=== PATIENT | male | born 1950 | race Caucasian/White ===

== ENCOUNTER 2023-05-06 13:31 | Emergency (ER) | payer MEDICARE, SELFPAY ==
[2023-05-06 13:32] VITALS: BP 107/77
--- NOTE | 2023-05-06 14:43 | ED.GENMED ---
History of Present Illness
<Taylor Summers PA-C - Last Filed: 05/06/23 23:14>
General
Chief Complaint: Flank Pain
Source: patient
Exam Limitations: none
Time Seen by Provider: 05/06/23 14:21
Nursing documentation reviewed up to this point in time: agreed with
Travel History
Have you had any contact with someone who has COVID-19?: No
Do you have any symptoms of coronavirus? Fever > 100 degrees, chills, cough, shortness of breath, sore throat, loss of taste or smell, muscle aches, or headache?: No
History of Present Illness
History of Present Illness:
Patient is a 73-year-old male with history as documented presenting for evaluation of right flank pain. Symptoms started 2 days ago and have been waxing waning intensity since. Pain is located over the right flank with some radiation around to the
right lower abdomen. He states his pain is exactly like his previous kidney stones. Pain is associate with some mild nausea but no vomiting. He denies any fever, chills, diarrhea, constipation, urinary symptoms. He has not noticed any hematuria.
He has inflammatory medications from last kidney stone which she has been taking. He has been taking Flomax once daily. He has been taking oxycodone 5 mg as needed for severe pain. He has been taking Zofran as needed for nausea
Phy Exam
<Taylor Summers PA-C - Last Filed: 05/06/23 23:14>
Physical Exam
Physical Exam:
General: Well appearing and non-toxic
Vitals: Vital signs stable, afebrile
HEENT: Atraumatic, normocephalic; pupils equal round reactive light bilaterally, protecting airway
Neck: appears supple, no JVD
CV: Regular rate and rhythm, heart sounds normal, no evidence of cyanosis
Resp: No evidence of respiratory stress, lungs clear, no accessory muscle use
Abd: Soft, nontender in all 4 quadrants without rebound or guarding, non-distended; no CVA tenderness
Extremities: No deformities, no evidence of cyanosis or edema
Neuro: alert and oriented x 3, grossly intact
Psych: Normal affect
Skin: Intact, no rashes
Course
<Taylor Summers PA-C - Last Filed: 05/06/23 23:14>
Orders/Labs/Results
Orders:
Orders
05/06/23 14:47
CT Abd/pel Without Iv Or Oral Urgent
Comment:
Reason For Exam: R flank pain, hx kidney stones
05/06/23 14:53
0.9% Sodium Chloride 1000 ml [Nss] 1,000 ml IV BOLUS
05/06/23 14:54
0.9% Sodium Chloride 500 ml [Nss] 500 ml IV BOLUS
05/06/23 15:10
Complete Blood Count/With Diff Urgent
Comprehensive Metabolic Panel Urgent
05/06/23 15:39
Urinalysis Reflex To Culture Urgent
Date Specimen was Collected: 05/06/23
Time Specimen was Collected: 15:34
Abnormal Lab Results
05/06/23
15:10
RBC 4.50 L 10^6/uL
(4.70-6.10)
Hct 38.6 L %
(39.0-52.0)
MPV 11.0 H fL
(7.4-10.4)
Absolute Monos (auto) 0.9 H 10^3/uL
(0.1-0.6)
Lymphocytes % 15.5 L %
(20.5-51.1)
Monocytes % 10.4 H %
(1.7-9.3)
Sodium 134 L mmol/L
(135-145)
BUN 34 H mg/dl
(9-20)
Creatinine 1.6 H mg/dL
(0.7-1.3)
Glucose 109 H mg/dl
(70-99)
05/06/23 15:10
05/06/23 15:10
Vital Signs
Initial and Last Documented VS:
Initial Vital Signs
Temp Pulse Resp BP Pulse Ox
97.8 F 69 16 107/77 100
05/06/23 13:32 05/06/23 13:32 05/06/23 13:32 05/06/23 13:32 05/06/23 13:32
Last Documented Vital Signs
Temp Pulse Resp BP Pulse Ox
97.8 F 69 16 107/77 100
05/06/23 13:32 05/06/23 13:32 05/06/23 13:32 05/06/23 13:32 05/06/23 13:32
<Chito Keene MD - Last Filed: 05/06/23 15:54>
Orders/Labs/Results
Orders:
Orders
05/06/23 14:47
CT Abd/pel Without Iv Or Oral Urgent
Comment:
Reason For Exam: R flank pain, hx kidney stones
05/06/23 14:53
0.9% Sodium Chloride 1000 ml [Nss] 1,000 ml IV BOLUS
05/06/23 14:54
0.9% Sodium Chloride 500 ml [Nss] 500 ml IV BOLUS
05/06/23 15:10
Complete Blood Count/With Diff Urgent
Comprehensive Metabolic Panel Urgent
05/06/23 15:39
Urinalysis Reflex To Culture Urgent
Date Specimen was Collected: 05/06/23
Time Specimen was Collected: 15:34
Abnormal Lab Results
05/06/23
15:10
RBC 4.50 L 10^6/uL
(4.70-6.10)
Hct 38.6 L %
(39.0-52.0)
MPV 11.0 H fL
(7.4-10.4)
Absolute Monos (auto) 0.9 H 10^3/uL
(0.1-0.6)
Lymphocytes % 15.5 L %
(20.5-51.1)
Monocytes % 10.4 H %
(1.7-9.3)
Sodium 134 L mmol/L
(135-145)
BUN 34 H mg/dl
(9-20)
Creatinine 1.6 H mg/dL
(0.7-1.3)
Glucose 109 H mg/dl
(70-99)
05/06/23 15:10
05/06/23 15:10
Vital Signs
Initial and Last Documented VS:
Initial Vital Signs
Temp Pulse Resp BP Pulse Ox
97.8 F 69 16 107/77 100
05/06/23 13:32 05/06/23 13:32 05/06/23 13:32 05/06/23 13:32 05/06/23 13:32
Last Documented Vital Signs
Temp Pulse Resp BP Pulse Ox
97.8 F 69 16 107/77 100
05/06/23 13:32 05/06/23 13:32 05/06/23 13:32 05/06/23 13:32 05/06/23 13:32
<Taylor Summers PA-C - Last Filed: 05/06/23 23:14>
MDM/Problems Addressed
Differential Diagnosis Includes:
kidney stone, UTI, pyelonephritis, muscular strain, appendicitis
MDM/Problems Addressed:
Patient is a 73 year old male with history as documented presenting for evaluation of right flank pain worsening over the past 2 days. No fever, chills, urinary symptoms. Pain waxes and wanes in severity - very similar to prior episodes of kidney
stones. Vital signs stable. Physical exam as documented above. Will check basic labs, UA, CT abdomen/pelvis. Will give fluids. To consider toradol pending metabolic panel results.
CBC without any clinically significant abnormalities. CMP shows creatinine of 1.6 from 0.9 baseline. Will avoid toradol for now given creatinine elevation- patient in no pain correctly. UA shows no signs of infection. CT shows 7mm obstructing stone
at right UVJ. Given elevation if kidney function - discussed case with urology. Urology recommends trial of stone passage for 7-10 days.
Discussed with patient who is agreeable. Will discharge patient with close return precautions, flomax, oxycodone/tylenol as needed for pain, hydration. Patient made aware to have kidney function rechecked by primary care in a few days. Patient will
follow-up with urology.
Chronic conditions affecting care:
Prior kidney stones
Acute Exacerbation and/or Progression of Chronic Illness:
Ureterolithiasis
<Taylor Summers PA-C - Last Filed: 05/06/23 23:14>
*Radiology
Radiology exam reviewed: preliminary read by ED provider and radiology read reviewed
*Pulse Oximetry
Patient hypoxic: no
*Criminal Attorney Interpretation
Rate: Criminal Attorney- N/A
*Critical Care Note
Total Time (30-74mins, 75-104mins- exclusive of procedures): Not Applicable
Data Reviewed
Review of Other/Old Records Reveals: Labs and Records
Source: patient, records and spouse
<Taylor Summers PA-C - Last Filed: 05/06/23 23:14>
Patient Management
Discussion with other providers: Rn Im[facility] (urology)
ED Attending Note
<Taylor Summers PA-C - Last Filed: 05/06/23 23:14>
-
Portions of this chart may have been created with voice recognition software.� Occasional wrong word or��sound alike� substitutions may have occurred due to the inherent limitations of voice recognition software.
<Chito Keene MD - Last Filed: 05/06/23 15:54>
ED Attending Note
Patient seen and examined by attending physician: Yes
ED Attending Note:
HPI: 73-year-old male with history as documented presents to the emergency department for flank pain. Patient reports onset of symptoms a few days ago they have been waxing waning since that time. Identical to prior kidney stones. He says pain is
in the right flank radiates towards the right lateral/lower abdomen. No clear triggering or relieving factors noted. Mild associated nausea no vomiting. No dysuria or hematuria, change in frequency. No fever.
ROS: Positive for flank pain, abdominal pain, nausea; negative for vomiting, constipation, diarrhea, fever, dysuria, hematuria, change in urinary frequency
Physical exam:
General: Awake, alert, oriented x3; no acute distress
Head: Normocephalic, atraumatic
Eyes: Conjunctiva normal, sclera anicteric
Throat: Airway intact, handling secretions
Neck: Trachea midline, supple without meningismus
Lungs: Clear to auscultation bilaterally, no wheezing, rales, rhonchi
Heart: Regular rate and rhythm, no murmurs, gallops, or rubs
Abd: Soft, non distended, nontender, no mass
Back: No CVA tenderness
Neuro: No gross deficits
Extremities: Warm and well-perfused
Differential diagnosis: UTI, nephrolithiasis, appendicitis
Medical decision makin-year-old male presents with right flank pain for the past few days identical to prior kidney stones. Vital signs normal. Exam as above. Check labs including CBC and CMP; check urinalysis. Will check CT abdomen pelvis.
Provide some fluids and pain control. Monitor closely reassess after the above.
Labs reviewed CBC unremarkable, CMP shows creatinine of 1.6 from a baseline of 0.9. Urinalysis pending. CT shows 7 mm obstructive stone at the right UVJ. PA to discuss with urology given abnormal renal function.
Chronic conditions affecting care: N/A
Acute exacerbation or progression of chronic illness: Acute kidney injury
History source: Patient, spouse, medical records
Data reviewed: Records, lab work
Medications/testing considered: N/A
Social determinants of health: N/A
Discussion with other providers: NAVDEEP discussed with urology
Discharge Plan
Departure
Patient Disposition: Home (Routine Discharge)
Date of Disposition: 05/06/23
Time of Disposition: 16:12
Patient with high blood pressure during this ER visit?: No
Condition: Good
Covid-19: Not Applicable
Discharge Problem:
Ureterolithiasis
Instructions: Kidney Stones (DC)
Prescriptions:
New
tamsulosin [Flomax] 0.4 mg capsule
0.4 mg PO DAILY Qty: 10 0RF
oxycodone 5 mg tablet
5 mg PO Q8H PRN (Reason: Pain) Qty: 10 0RF
ondansetron 4 mg tablet,disintegrating
4 mg PO Q8H PRN (Reason: nausea and vomiting) Qty: 8 0RF
No Action
atorvastatin 20 MG tablet
20 mg PO HS
omeprazole 20 MG capsule,delayed release(DR/EC)
20 mg PO HS
folic acid 1 MG tablet
3 mg PO HS
One Daily For Men 1 EACH tablet
1 ea PO HS
amoxicillin 500 MG capsule
2,000 mg PO PRN PRN (Reason: dental procedure)
vardenafil 20 MG tablet
10 mg PO DAILYPRN PRN (Reason: erectile dysfunction)
Calcium Mag Zinc/Vit D3
1 tab PO HS
methotrexate sodium 2.5 MG tablet
10 mg PO SA Qty: 0 0RF
fluticasone propionate 1 SPRAY spray,suspension
1 spray intranasal DAILY PRN (Reason: congestion)
Orencia:
1 dose IV Q1M
Patient Comments:
valacyclovir 1,000 MG tablet
2,000 mg PO BID PRN (Reason: cold sores)
losartan 25 MG tablet
25 mg PO HS
glucosamine-chondroitin [Osteo Bi-Flex] 250-200 mg Tablet
1 tab PO HS
carvedilol 3.125 mg Tablet
3.125 mg PO BID Qty: 180 5RF
oxycodone-acetaminophen [Percocet] 5-325 mg tablet
1 tab PO Q6HPRN PRN (Reason: pain) Qty: 8 0RF
tamsulosin [Flomax] 0.4 mg capsule
0.4 mg PO HS Qty: 7 0RF
Referrals:
Prosper Graham MD [Active] - Follow up in 1 week
Derian Garcia MD [Family Provider] -
Activity Restrictions/Additional Instructions:
-Return to the emergency department with any high fevers, intractable pain, intractable vomiting, severe abdominal pain, worsening in current symptoms, or any other concerns.
-Your prescriptions have been sent to your pharmacy. Take oxycodone as needed for severe pain. Oxycodone can cause drowsiness - do not take prior to driving. You can take tylenol for mild pain.
-It is important to stay very well hydrated
-As discussed - you should have your lab work re-checked in 2-3 days with your primary care. You should contact your surgical scrub technician and make them aware about your elevated renal function prior to receiving your infusion later this week.
-Follow-up with urology for further evaluation/management
Interventions
Interventions:
*Risk Screen - Suicide Last Done: 05/06/23 13:32
*Neglect/Abuse Screening Last Done: 05/06/23 13:32
*ED COVID-19 Vaccine History Last Done: 05/06/23 13:32
*Nursing Disposition Last Done: 05/06/23 16:34
IM-Uasvno-Imkuortdft Assessment Last Done: 05/06/23 15:10
ED-Male Genitourinary Assessment Last Done: 05/06/23 15:10
Discharge Date and Time
Discharge Date/Time: 05/06/23 16:34
[2023-05-06] MEDS: NSS 500 IV (15:09)
[2023-05-06 15:42] LABS: % Basophils 0.3 % (0-2); % Eosinophils 1.8 % (0-6); % Immature Granulocytes 0.3 % (0-0.5); % Lymphocytes 15.5 % (20.5-51.1); % Monocytes 10.4 % (1.7-9.3); % Neutrophils 71.7 % (42.2-75.2); ALT (SGPT) 20 U/L (0-50); AST (SGOT) 33 U/L (17-59); Absolute Eosinophils 0.2 10^3/uL (0-0.7); Absolute Lymphocytes 1.4 10^3/uL (1.2-3.4); Absolute Monocytes 0.9 10^3/uL (0.1-0.6); Absolute Neutrophils 6.3 10^3/uL (1.4-6.5); Albumin 3.9 g/dl (3.5-5.0); Alkaline Phosphatase 110 U/L (38-126); Blood Urea Nitrogen 34 mg/dl (9-20); Calcium 9.1 mg/dl (8.4-10.2); Carbon Dioxide 27 mmol/L (22-30); Chloride 103 mmol/L (98-107); Glucose 109 mg/dl (70-99); Hematocrit 38.6 % (39.0-52.0); Hemoglobin 13.3 g/dL (13.0-18.0); Mean Corp Hgb Conc. 34.5 g/dL (33.0-37.0); Mean Corpuscular Hgb 29.6 pg (27.0-31.0); Mean Corpuscular Volume 85.8 fL (80.0-94.0); Nucleated Red Blood Cells % 0 % (-); Platelet Count 180 10^3/uL (130-400); Potassium 4.8 mmol/L (3.5-5.1); Red Cell Dist. Width 13.7 % (11.5-14.5); Sodium 134 mmol/L (135-145); Total Bilirubin 0.8 mg/dl (0.2-1.3); Total Protein 6.7 g/dl (6.3-8.2); White Blood Cell Count 8.9 10^3/uL (4.8-10.8); eGFR 45.21
[2023-05-06 15:55] LABS: Urine Albumin Negative (Neg - Trace); Urine Bilirubin Negative (Negative); Urine Character Clear (Clear); Urine Color Yellow; Urine Glucose Negative (Negative); Urine Ketone Negative (Negative); Urine Leukocyte Negative (Negative); Urine Nitrite Negative (Negative); Urine Occult Blood Negative (Negative); Urine Urobilinogen Negative (Neg - 1+)
== END 2023-05-06 16:34 | disposition home or self-care (01) ==
LOC: EMR 13:31
PROVIDERS: Physician Assistant; EMERGENCY PHYSICIAN Emergency Medicine; FAMILY PHYSICIAN Family Medicine
DX: N13.2 Hydronephrosis with renal and ureteral calculous obstruction (principal)
CPT/HCPCS: 99284; 96360; 74176; 80053; 81003; 85025

== ENCOUNTER → 2024-03-31 12:38 | Outpatient (REF) | payer MEDICARE, SELFPAY | LOC: RCS 12:38 | PROVIDERS: ATTENDING PHYSICIAN Internal Medicine Cardiovascular Disease; FAMILY PHYSICIAN Family Medicine | DX: I47.29 Other ventricular tachycardia (principal) | CPT/HCPCS: 93306 ==

== ENCOUNTER → 2024-10-04 13:44 | Outpatient (REF) | payer MEDICARE, SELFPAY | LOC: RAD 13:44 | PROVIDERS: ATTENDING PHYSICIAN Internal Medicine Cardiovascular Disease; FAMILY PHYSICIAN Family Medicine | DX: I42.8 Other cardiomyopathies (principal); M06.9 Rheumatoid arthritis, unspecified | CPT/HCPCS: 71046 ==

== ENCOUNTER 2025-01-31 21:17 | Inpatient (IN) | payer MEDICARE, SELFPAY ==
[2025-01-31] VITALS (14 sets, daily range): BP systolic 85–127; BP diastolic 68–91; BMI 24.0
--- NOTE | 2025-01-31 16:19 | ED.GENMED ---
History of Present Illness
General
Chief Complaint: Heart Rate Problem
Source: patient
Exam Limitations: none
Time Seen by Provider: 01/31/25 15:58
Nursing documentation reviewed up to this point in time: agreed with
History of Present Illness
History of Present Illness:
Patient presents to ED from outpatient infusion center, where he was supposed to receive monthly injections for rheumatoid arthritis, secondary to increased heart rate. Patient does report sensation of 'racing' feeling, which he attributed to
having had a busy schedule this morning with different appointments. Denies chest pain. Denies dizziness. Denies nausea or vomiting. Denies diaphoresis. Patient has had defibrillator placed 4 years ago, secondary to loop recorder detecting
heart rate exceeding 190 bpm. Patient has not any symptoms since then. Denies recent illness. Denies recent change in medications or diet.
Review of Systems
Review of Systems
Allergies reviewed?: Yes
All Other Systems: ROS reviewed and negative except as documented in HPI and ROS
Constitutional: Reports no symptoms; Denies fever or chills
EENT: Reports no symptoms
Respiratory: Reports no symptoms; Denies trouble breathing
Cardiac: Reports palpitations; Denies chest pain, diaphoresis or syncope
ABD/GI: Reports no symptoms; Denies nausea or vomiting
Musculoskeletal: Reports no symptoms
Skin: Reports no symptoms
Neurological: Reports no symptoms
Phy Exam
Physical Exam
Physical Exam:
Physical Exam
General: no apparent distress, not acutely ill. afebrile
Head: nc/at. eomi
Neck: supple. normal range of motion
Heart: tachycardic. no murmur
Lungs: no acute respiratory distress. clear bilaterally
Abdomen: normal bowel sounds. not tender.
Neuro: alert and oriented x 3. no focal neurological deficits
Skin: no rash
Psychiatric: well kept. interactive and cooperative
Extremities: no edema. no calf tenderness.
Course
Orders/Labs/Results
Orders:
Orders
01/31/25 15:51
Electrocardiogram (*1) Urgent
Reason for Study: Other
Other Reason for Exam: abnormal EKG from urgent care
EKG- Treatment ONCE
01/31/25 16:17
Comprehensive Metabolic Panel Urgent
Magnesium Urgent
01/31/25 16:18
Complete Blood Count/No Diff Urgent
TSH Urgent
01/31/25 16:21
0.9% Sodium Chloride 500 ml [Nss] 500 ml IV BOLUS
01/31/25 17:54
Metoprolol [Lopressor] 5 mg IV NOW STA
01/31/25 18:17
D-Dimer Urgent
Troponin I Urgent
01/31/25 19:23
CT Chest PE Study Urgent
Comment:
Reason For Exam: tachycardia with elevated d-dimer
01/31/25 20:06
Diltiazem HCl [Cardizem] 10 mg IV NOW STA
01/31/25 20:44
EKG PRN [ECG as needed] As Directed
ECG as needed for:: Rhythm Change
01/31/25 20:57
Admit/Transfer Patient As Directed
Co-Sign Provider:
Level of Care: Inpatient admission
Assign to:: IVU
Physician / Group: bruce lyons
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
Expected length of stay greater than two midnights?: Yes
ELOS- Estimated Length of Stay in days: 3
I certify the patient meets the requirements for IP care: Yes
Code Status As Directed
Resuscitation Status: Full Code
01/31/25 21:00
PRN Pain Medication Management As Directed
May give lesser potent ordered pain med per pt: Yes
preference::
Protocol:: Medication orders for pain may be administered in a
manner that supports deferring to patient preference
when the pt is:
- Requesting an ordered lesser potent pain medication.
Least to most potent pain medications are defined
as: acetaminophen < NSAID < tramadol < opioids
(morphine, oxycodone, hydromorphone).
- Requesting a lesser dose of the same medication IF
ORDERED.
- Requesting a less intrusive route of administration
if both routes are prescribed by the provider (PO <
IV).
01/31/25 21:01
CARDIOLOGY CONSULT Routine
Consulting Provider: Adolfo Leger
Was physician already notified: Yes
Reason for consult: parox afib, AF/AT on defib
01/31/25 22:57
Troponin I Urgent
02/01/25 02:09
Activity As Directed
Activity Level: As Tolerated
Intake/ Output As Directed
Frequency: Per unit guidelines
Vital Signs As Directed
Frequency: Per unit guidelines
Weight As Directed
Frequency: Daily
Pt Eval And Treat Routine
Activity Level: As Tolerated
DX Deep Vein Thrombosis Video Routine
02/01/25 03:11
Complete Blood Count/With Diff IN AM
Comprehensive Metabolic Panel IN AM
Magnesium IN AM
Troponin I Urgent
02/01/25 08:00
Atorvastatin [Lipitor] 20 mg PO DAILY
Calcium Carbonate/Vitamin D3 [Oscal 500 + D] 500 mg PO DAILY
Carvedilol [Coreg] 6.25 mg PO BID
FOLic ACID [Folvite] 1 mg PO DAILY
Heparin 5,000 units SC Q12
Multivitamin [Theragran] 1 tablet PO DAILY
Pantoprazole [Protonix] 40 mg PO DAILY
02/01/25 Dinner
Cholesterol Lowering
At Your Request: Full Participation
Cholesterol Lowering: Sodium, 2 Gram
02/02/25 06:00
Complete Blood Count/With Diff IN AM
Comprehensive Metabolic Panel IN AM
Abnormal Lab Results
01/31/25 01/31/25 01/31/25
16:17 16:18 18:17
MPV 11.0 H fL
(7.4-10.4)
D-Dimer 1.00 H ug/mlFEU
(0.00-0.50)
Sodium 134 L mmol/L
(135-145)
BUN 27 H mg/dl
(9-20)
Troponin I 0.050 H* ng/ml
01/31/25 16:18
01/31/25 16:17
Vital Signs
Initial and Last Documented VS:
Initial Vital Signs
Temp Pulse Resp BP Pulse Ox
98.4 F 134 18 127/91 100
01/31/25 15:48 01/31/25 15:48 01/31/25 15:48 01/31/25 15:48 01/31/25 15:48
Last Documented Vital Signs
Temp Pulse Resp BP Pulse Ox
97.5 F 91 18 76/54 99
02/01/25 06:57 02/01/25 05:15 02/01/25 06:57 02/01/25 05:13 02/01/25 06:57
MDM/Problems Addressed
MDM/Problems Addressed:
Patient remains tachycardic despite initial IV fluid administration, with continual sensation of 'racing feeling'. In addition, patient remains hypotensive.
Discussed with on-call cardiology, Dr. Leger, who recommends controlling heart rate with beta-xi along with additional IV fluids, as needed.
Initial troponin noted with elevated D-dimer. PE study ordered.
CTA chest: No PE noted.
In light of patient's persistent tachycardia with mild hypotension, patient will be admitted for further evaluation and treatment.
*Pulse Oximetry
SaO2: 100
Oxygen Mode of Delivery: Room air
Patient hypoxic: no
*EKG
Interpreted by ED Provider?: Yes
EKG Intrepretation Date: 01/31/25
Heart Rate: 133
Rate: tachycardiac
Rhythm: sinus
[place]: normal axis
Interval: normal interval
*Critical Care Note
Total Time (30-74mins, 75-104mins- exclusive of procedures): 40 min
ED Attending Note
-
Portions of this chart may have been created with voice recognition software.� Occasional wrong word or��sound alike� substitutions may have occurred due to the inherent limitations of voice recognition software.
Discharge Plan
Departure
Patient Disposition: Admit
Date of Disposition: 01/31/25
Time of Disposition: 20:10
Admit to: Telemetry
Presentation/result/management discussed w/ accepting MD/DO: Hospitalist
Discharge Problem:
Tachycardia
Interventions
Interventions:
*Risk Screen - Suicide Last Done: 01/31/25 15:48
*General Assessment Last Done: 01/31/25 15:48
*Neglect/Abuse Screening Last Done: 01/31/25 15:48
*ED COVID-19 Vaccine History Last Done: 01/31/25 18:58
*ED Influenza Vaccine History Last Done: 01/31/25 18:[address]
[facility] Fall Risk Assessment Tool Last Done: 01/31/25 18:58
*Nursing Disposition Last Done: 02/01/25 01:40
ED- Cardiac Assessment Last Done: 01/31/25 18:58
ED- Pulmonary Assessment Last Done: 01/31/25 18:58
Discharge Date and Time
Discharge Date/Time: 02/01/25 01:40
[2025-01-31 16:29] LABS: Hematocrit 44.3 % (39.0-52.0); Hemoglobin 15.0 g/dL (13.0-18.0); Mean Corp Hgb Conc. 33.9 g/dL (33.0-37.0); Mean Corpuscular Volume 87.2 fL (80.0-94.0); Platelet Count 228 10^3/uL (130-400); Red Cell Dist. Width 14.0 % (11.5-14.5)
[2025-01-31] MEDS: NSS 500 IV (16:30)
[2025-01-31 16:48] LABS: ALT (SGPT) 22 U/L (0-50); AST (SGOT) 29 U/L (17-59); Albumin 4.2 g/dl (3.5-5.0); Alkaline Phosphatase 114 U/L (38-126); Blood Urea Nitrogen 27 mg/dl (9-20); Calcium 9.3 mg/dl (8.4-10.2); Carbon Dioxide 28 mmol/L (22-30); Chloride 103 mmol/L (98-107); Estimated Creatinine Clearance 57 ml/min; Glucose 93 mg/dl (70-99); Magnesium 2.0 mg/dl (1.6-2.3); Potassium 4.2 mmol/L (3.5-5.1); Sodium 134 mmol/L (135-145); Total Protein 7.3 g/dl (6.3-8.2); eGFR > 60.00
[2025-01-31 17:10] LABS: TSH 1.79 uIU/ml (0.47-4.68)
[2025-01-31] MEDS: LOPRESSOR 5 MG IV (18:06)
[2025-01-31 18:37] LABS: D-Dimer 1.00 ug/mlFEU (0.00-0.50)
[2025-01-31 19:23] LABS: Troponin I 0.050 ng/ml
--- NOTE | 2025-01-31 20:22 | HPS.HSE ---
Addendum entered and electronically signed by Macarena Juarez MD 01/31/25 21:25:
This is an addendum to H&P written by Na Price on 01/31/2025. �Patient seen and examined independently with DIVERSITY SPECIALIST.
75-year-old male past medical history of ventricular tachycardia with ICD, chronic HFrEF, nonischemic cardiomyopathy, hypertension, hyperlipidemia, GERD, rheumatoid arthritis, depression, presenting from outpatient infusion center where he receives
injections for rheumatoid arthritis for increased heart rate. �Had shortness of breath yesterday with no other symptoms. �No chest pain.
Vital signs show blood pressure lowest 88/69. �Heart rate up to 135. �EKG shows sinus tachycardia up to 133.
Labs show troponin of 0.05. �TSH 1.79.
Interrogation report from ICD shows atrial tachycardia/atrial fibrillation.
Patient with tachycardia likely atrial flutter. �Nonischemic myocardial injury from tachycardia. �IV fluids given, Lopressor, Cardizem 10 mg given with improvement heart rate to 70s. �Increase Coreg to 6.25 mg twice daily. �Cardiology consulted.
Original Note:
Family Physician
-
Family Physician: Derian Garcia
Chief Complaint
-
Persistent tachycardia
History of Present Illness
75-year-old male from home who states he went to infusion center for his Orencia injection after exercising however his heart rate was 139 so they would not give it. They referred him to ER for evaluation. He states that he exercises several times
a week does Silver sneakers, nuvia chi, yoga, karate. He recalls feeling short of breath yesterday while walking in his garage changing batteries outside. He denies current chest pain, palpitations, shortness breath, cough, fever, chills, recent
illness, sore throat, headache, abdominal pain, nausea, vomiting, diarrhea, urinary symptoms. He has past medical history of monomorphic SVT requiring defibrillator/pacemaker placement, nonischemic cardiomyopathy EF 37%, GERD, Buck's esophagus,
eosinophilic esophagitis/gastritis, RA, osteoarthritis, depression, herpes simplex virus, squamous cell removal right lower anterior erickson 01/14/2025.
Medical History
Past Medical History
Past Medical History: Reports Other
Additional Past Medical History:
history of monomorphic SVT requiring defibrillator/pacemaker placement
nonischemic cardiomyopathy EF 37%
GERD
Buck's esophagus
eosinophilic esophagitis/gastritis
RA
osteoarthritis
depression
herpes simplex virus
squamous cell removal right lower anterior erickson 01/14/2025.
Past Surgical History: Reports Other
Additional Past Surgical History:
squamous cell removal right lower anterior erickson 01/14/2025.
Defibrillator/pacemaker
Social History
Tobacco: Non-smoker
Alcohol: None
Drug: None
Personal:
Living: With Family
Employment: Retired
Family History
Family History: Not pertinent
Allergies / Home Medications
Allergies reflects when Allergies were last updated in [facility].
Home Medications with original date entered in [facility]
Allergy/Medication List:
Allergies
Allergy/AdvReac Type Severity Reaction Status Date / Time
No Known Allergies Allergy Verified 01/31/25 15:48
Home Medications
atorvastatin 20 mg tablet 20 mg PO DAILY High Cholesterol 02/09/21
calcium 333 mg-vit D3 133 unit-magnesium 133 mg-zinc 5 mg tablet 1 tab PO DAILY Supplement ##0 02/09/21
folic acid 1 mg tablet 1 mg PO DAILY Supplement 02/09/21
methotrexate sodium 2.5 mg tablet 10 mg (4 x 2.5 mg) PO SA ##0 02/09/21
omeprazole 20 mg capsule,delayed release 20 mg PO DAILY Gastrointestinal Issue 02/09/21
abatacept 50 mg/0.4 mL subcutaneous syringe (Orencia) 50 mg SC MONTHLY ##0 04/27/21
losartan 25 mg tablet 25 mg PO DAILY Heart Disease/Condition 05/01/21
carvedilol 3.125 mg tablet 3.125 mg PO BID Heart Disease/Condition 01/31/25
ffhbpuvdcct-rjzmsyzzk-oao C-Mn 500 mg-400 mg capsule 1 cap PO DAILY Supplement 01/31/25
therapeutic multivitamin 1 tab PO DAILY Supplement 01/31/25
Review of Systems
-
History Source: Patient and Family ( at bedside)
A 12 point ROS was completed and negative except as noted: Yes
Constitutional: Denies Fatigue or Chills
EENT: Denies Sore Throat or Runny Nose
Respiratory: Reports Other (Episode yesterday shortness of breath while walk); Denies Cough or Trouble Breathing
Cardiac: Denies Chest Pain, Diaphoresis, Palpitations or Syncope
Abdomen/GI: Denies Abdominal Pain, Nausea, Vomiting or Diarrhea
: Denies Dysuria, Frequency, Flank Pain, Incontinence or Difficulty Voiding
Musculoskeletal: Denies Joint Pain or Edema
Skin: Denies Itching or Rash
Neurological: Denies Dizzy, Headache or Weakness
Endocrine: Reports No Symptoms
Hematologic/Lymphatic: Reports No Symptoms
Psych: Reports Calm
Physical Exam
Vital Signs
Vital Signs
Temp Pulse Resp BP Pulse Ox
98.4 F 132 19 85/71 98
01/31/25 15:48 01/31/25 18:58 01/31/25 18:30 01/31/25 18:30 01/31/25 18:58
Physical Exam
General: No Pain, Fever or Chills
HEENT: NormoCephalic, Anicteric, Moist mucous membranes, PERRLA, Sumner Conjunctivae and No Ptosis
Respiratory: Clear; No Wheezes, Rales or Rhonchi
Cardiac: S1/S2 and Irregular Rhythm (A flutter heart rate 136 bpm); No Murmur, Rub, Gallop or Peripheral Edema
Breast: Deferred by me
GI: Soft, Non Tender, Non Distended, Normal Bowel Sounds and No Hepatosplenomegaly
Rectal: Deferred by Provider
Musculoskeletal: No Clubbing, No Cyanosis, No Edema and Other (Dressing present over right anterior erickson excision of squamous cell CA on 01/14/2025)
Skin: Warm and Dry; No Rash
Neuro: AO x 3, No Motor Deficits, Nonfocal/grossly intact, Cranial Nerves Intact and No Sensory Deficits; No Slurred Speech, Facial Droop, Tremors or Sedated
Psych: Calm
Laboratory Results
-
01/31/25 16:18
01/31/25 16:17
Laboratory Results
Total Bilirubin 0.5 mg/dl (0.2-1.3) 01/31/25 16:17
AST 29 U/L (17-59) 01/31/25 16:17
ALT 22 U/L (0-50) 01/31/25 16:17
Alkaline Phosphatase 114 U/L (38-126) 01/31/25 16:17
Troponin I 0.050 ng/ml H* 01/31/25 18:17
Data Reviewed
-
Lab Data: Labs Reviewed by me
Impression/Plan
-
Impression/plan:
Admit to IVU
#Paroxysmal A flutter with episodic atrial tach/A-fib per defibrillator irrigation
HR 132 > 86 post Cardizem 10 mg bolus
Medtronic defibrillator interrogation AT/AF greater than 6 hours x 2 days
-Increase Coreg 3.125 mg twice daily to 6.125 mg twice daily- Control heart rate with beta-blockers IV fluids as needed per cardiology
-Repeat 2D echo
-Consult cardiology Dr. Adolfo Leger aware
- TSH within normal limits
CT PE study
No evidence of central pulmonary embolism.
Heart possibly mildly enlarged.
2D echo 03/31/2024: EF 37%, stage I diastolic dysfunction, normal LVS
Moderate reduced LVSF, no wall abnormalities
Global hypokinesis
Mild aortic root dilation aortic root 3.8 cm, ascending aorta 4.1 cm
#Borderline hypotension
BP 104/77 patient low with systolic 86
Hold losartan 25 mg daily
#Troponin elevation likely ischemic demand
Troponin 0.050 will trend
#History of Defibrillator/pacemaker placement 2020 due to heart rate exceeding 190 bpm
#History of monomorphic SVT 07/13/2022
#Nonischemic cardiomyopathy EF 37%
#Squamous cell removal right lower anterior erickson 01/14/2025
#Right lower extremity no swelling no surrounding erythema
Completed course of amoxicillin
#GERD
#Buck's esophagus
#Eosinophilic esophagitis/gastritis
-Continue omeprazole 20 mg
#RA
#Osteoarthritis
-Patient gets Orencia last dose 01/01/2025
Depression
No current meds
Herpes simplex virus
DVT prophylaxis
Subcu heparin
Full code
[2025-01-31] MEDS: CARDIZEM 10 MG IV (20:34)
[2025-01-31] MEDS: CARDIZEM IV (20:36)
--- NOTE | 2025-01-31 23:04 | W.PN.UPDATE ---
Update Note
Progress Note Update
Afib with Rvr
@ 2305 pt HR back up to 136 bpm, Bp stable
Responded well earlier to Iv cardizem bolus only
will give 5 mg bolus then start gtt at 5mg/hr to titrate to HR and Bp
[2025-01-31 23:29] LABS: Troponin I 0.056 ng/ml
[2025-01-31] MEDS: CARDIZEM 125 IV (23:36)
[2025-02-01] VITALS (25 sets, daily range): BP systolic 75–115; BP diastolic 54–87; BMI 25.4
--- NOTE | 2025-02-01 00:31 | W.PN.UPDATE ---
Update Note
Progress Note Update
hr and bolus
[2025-02-01] MEDS: NSS 500 IV (00:43)
--- NOTE | 2025-02-01 03:13 | PTCARENOTE ---
Pt oob at this time to have a bm. ht rate 120's irregular
[2025-02-01 03:26] LABS: Hematocrit 38.9 % (39.0-52.0); Hemoglobin 13.4 g/dL (13.0-18.0); Mean Corp Hgb Conc. 34.4 g/dL (33.0-37.0); Mean Corpuscular Volume 87.0 fL (80.0-94.0); Nucleated Red Blood Cells % 0 % (-); Platelet Count 186 10^3/uL (130-400); Red Cell Dist. Width 14.1 % (11.5-14.5)
[2025-02-01 03:54] LABS: Troponin I 0.055 ng/ml
[2025-02-01 03:55] LABS: ALT (SGPT) 18 U/L (0-50); AST (SGOT) 23 U/L (17-59); Albumin 3.3 g/dl (3.5-5.0); Alkaline Phosphatase 90 U/L (38-126); Blood Urea Nitrogen 21 mg/dl (9-20); Calcium 8.8 mg/dl (8.4-10.2); Carbon Dioxide 28 mmol/L (22-30); Chloride 106 mmol/L (98-107); Estimated Creatinine Clearance 62 ml/min; Glucose 110 mg/dl (70-99); Magnesium 2.0 mg/dl (1.6-2.3); Potassium 4.1 mmol/L (3.5-5.1); Sodium 136 mmol/L (135-145); Total Protein 6.0 g/dl (6.3-8.2); eGFR > 60.00
--- NOTE | 2025-02-01 05:24 | PTCARENOTE ---
Pt's ht rate controlled but b/p dropping 80's systolic, Cardizem gtt placed on hold at 0410 b/p now 76/54. Pt denies feeling dizzy or lightheaded. Aware to stay on CBR. House INSURANCE ACCOUNT REPRESENTATIVE notified
--- NOTE | 2025-02-01 05:44 | PTCARENOTE ---
Midodrine given at this time
--- NOTE | 2025-02-01 07:45 | W.PN.HOSP.TC ---
Today's Communication/Plan
-
see PN
Assessment / Plan
Assessment / Plan
75yo M with PMHX of [place] HTN, SVT s/p ICD, non-ischemic CM EF 37%, barrets, eosynophilic esophagitis, chronic herpes simplex, SCC of the skin s/p Mohs came with tachycardia found in infusion center, where he went for Abatacept injection. Found atrial
flutter in ED.
A/P:
#Atrial flutter
#Non-ischemic CM
#Non-ischemic myocardial injury 2/2 tachycardia
#Essential HTN
telemetry
rate control, however limited with hypotesion, adjust BP meds
Echo
defer anticoagulation to cardiology, since concern for coduction block on EKG
TSH WNL
serial trop peaked at 0.056 without meaningful delta
Patient does not have chest pain
CM for [employer] pricing
#RA
#Barrets
#chronic herpes siplex infection
cont home meds
DVT ppx hep
ful code
I have spent at least 56 min reviewing chart, test results, communication with consultants and providing direct patient care
Anticipated Discharge: 24 - 48 hours
Subjective/Interval History
-
Date of Service: February 01, 2025
Objective Data
-
Labs:
Laboratory Results
02/01/25
03:11
WBC 8.1
Hgb 13.4
Hct 38.9 L
Plt Count 186
Sodium 136
Potassium 4.1
Chloride 106
Carbon Dioxide 28
BUN 21 H
Creatinine 1.1
Glucose 110 H
Calcium 8.8
Total Bilirubin 0.5
AST 23
ALT 18
Alkaline Phosphatase 90
Vital Signs:
Vital Signs
Temp Pulse Resp BP Pulse Ox
97.5 F 91 18 76/54 99
02/01/25 06:57 02/01/25 05:15 02/01/25 06:57 02/01/25 05:13 02/01/25 06:57
I&O
01/31/25 02/01/25 02/02/25
06:59 06:59 06:59
Intake Total 507.5 / 507.5
Balance 507.5 / 507.5
Review of Systems
-
History Source: Patient
All other systems: Reviewed and negative
Physical Exam
-
General: No Apparent Distress
HEENT: Normocephalic
Respiratory: Clear to Auscultation
Cardiac: Irregular Rhythm
GI: Soft, Nontender and Nondistended
Musculoskeletal: No Clubbing, No Cyanosis and No Edema
Neuro: Awake, Alert, Oriented, AO x 3 and No Motor Deficits
Psych: Calm
--- NOTE | 2025-02-01 08:56 | CON.CAR ---
Addendum entered and electronically signed by Anam Hadley MD 02/01/25 10:38:
I saw and examined the patient.
The STACKER ATTENDANT or PA's note was reviewed and I agree with the note.
Comment: General: Well developed, well nourished in NAD.
Neck: Supple, no JVD, HJR, carotids +2 B/L, no bruits bilaterally.
Heart: Non displaced PMI, irregular, no murmurs, No S3, S4, no rubs.
Lungs: Clear to auscultation bilaterally, no wheeze, rhonchi, rubs bilaterally,
normal expiratory phase.
Extremities: No clubbing, cyanosis or edema bilaterally.
Neuro: Grossly nonfocal, awake, alert and oriented x3.
Candido has a history of nonischemic cardiomyopathy ejection fraction of 35 to 40%, monomorphic VT status post ICD in 2022, hypertension, hyperlipidemia, GERD, rheumatoid arthritis. He was noted to be tachycardic when he presented for his Orencia
infusion for rheumatoid arthritis. He is found to be in atrial flutter and admitted. He denies any chest pain, short breath, or palpitations. Of note device check revealed brief episodes of A-fib in the past but has been persistent since 10 AM on
01/31.
Will start Eliquis. Will plan on ANTHONY/cardioversion today. He wishes to hold off on antiarrhythmic medications but would be at high risk of recurrent atrial flutter without an antiarrhythmic medication.
Original Note:
Consultation
Consultation Request
Date/Time Consultation Performed: 02/01/25
Requesting Provider: Dr. Martinez
Performing Provider: Carol Valenzuela PA-C for Dr. Hadley
Reason for Consultation: aflutter
Medical History
-
Chief Complaint: rapid HR
History of Present Illness:
Patient is a 75-year-old male with past medical history of nonischemic cardiomyopathy with EF 35 to 40%, monomorphic VT status post Medtronic ICD 08/2022, GERD/Buck's esophagus who presented to infusion center yesterday for his Orencia for
rheumatoid arthritis and was noted to be tachycardic. He states this is not uncommon, as he is often rushing around to get to his infusion, however normally then settles down. He states his heart rate remained elevated, so he was referred to the
ER for further evaluation. On arrival was noted to be in atrial flutter with RVR which started 10:58 on 01/31/25 by device interrogation. This is new diagnosis for patient. At last device interrogation he was noted to have 57 seconds of A-fib,
however given short duration, no medication adjustments were made. He denies history of bleeding issues or falls. Main complaint is that he is very hungry. IV cardizem was stopped overnight due to hypotension.
PMH:
History of brief Atach, brief afib 57 seconds by last device interrogation 11/2024
NICM EF 35-40% by echo 03/2024
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
HTN
HLD
s/p cath with luminal irregularities only 2020
GERD/Buck's esophagus
RA
Past Medical History
Past Medical History: Other (in HPI)
Social History
Tobacco: Non-Smoker
Alcohol: Occasional
Personal:
Living: With Family
Employment: Retired
Family History
Family History: Other (heart disease)
Allergies / Home Medications
Allergy/AdvReac Type Severity Reaction Status Date / Time
No Known Allergies Allergy Verified 01/31/25 15:48
�Medication �Instructions �Recorded �Confirmed �Type
atorvastatin 20 mg tablet 20 mg PO DAILY High Cholesterol 02/09/21 01/31/25 History
calcium 333 mg-vit D3 133 1 tab PO DAILY Supplement ##0 02/09/21 01/31/25 History
unit-magnesium 133 mg-zinc 5 mg
tablet
folic acid 1 mg tablet 1 mg PO DAILY Supplement 02/09/21 01/31/25 History
methotrexate sodium 2.5 mg tablet 10 mg (4 x 2.5 mg) PO SA ##0 02/09/21 01/31/25 Rx
omeprazole 20 mg capsule,delayed 20 mg PO DAILY Gastrointestinal 02/09/21 01/31/25 History
release Issue
abatacept 50 mg/0.4 mL 50 mg SC MONTHLY ##0 04/27/21 01/31/25 History
subcutaneous syringe (Orencia)
losartan 25 mg tablet 25 mg PO DAILY Heart 05/01/21 01/31/25 History
Disease/Condition
carvedilol 3.125 mg tablet 3.125 mg PO BID Heart 01/31/25 01/31/25 History
Disease/Condition
ehoovogjhfg-eyxkrqgjc-gxb C-Mn 500 1 cap PO DAILY Supplement 01/31/25 01/31/25 History
mg-400 mg capsule
therapeutic multivitamin 1 tab PO DAILY Supplement 01/31/25 01/31/25 History
apixaban 5 mg tablet (Eliquis) 5 mg PO BID #60 tabs 02/01/25 Rx
Review of Systems
-
History Source: Patient
All other systems: Negative unless noted
Physical Exam
Vital Signs
Temp Pulse Resp BP Pulse Ox
97.5 F 91 18 76/54 99
02/01/25 06:57 02/01/25 05:15 02/01/25 06:57 02/01/25 05:13 02/01/25 06:57
Lab Results
02/01/25 03:11
02/01/25 03:11
Troponin I 0.055 ng/ml H* 02/01/25 03:11
Physical Exam
General: No Apparent Distress and Comfortable
HEENT: Normocephalic, Anicteric and Moist Mucous Membranes
Respiratory: Clear and Non Labored Respirations
Cardiac: S1/S2 and Irregular Rhythm
GI: Soft, Non Tender, Non Distended and Normal Bowel Sounds
Musculoskeletal: No Clubbing, No Cyanosis and No Edema
Skin: Warm and Dry
Neuro: AO x 3
Impression / Plan
-
Primary Knife Blade Polisher: Dr. VERONICA Quintanilla
Assessment:
Presentation with tachycardia
Typical atrial flutter with RVR, new diagnosis, started 01/31 @10:58AM
Elevated troponin, suspected nonischemic myocardial injury
History of brief Atach, brief afib 57 seconds by last device interrogation 11/2024
NICM EF 35-40% by echo 03/2024
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
HTN
HLD
s/p cath with luminal irregularities only 2020
GERD/Buck's esophagus
RA
ECHO 04/03/22: EF 35 to 40%, stage I diastolic dysfunction, trace to mild MR, aortic sclerosis, trace AR, trace TR, PAP 36 mmHg
ECHO 03/31/24: EF 37%, global hypokinesis, stage I diastolic dysfunction, aortic sclerosis, mild aortic root dilatation
Plan:
- Patient presented [facility] with sustained tachycardia. Found to be in typical atrial flutter with RVR, new diagnosis which started 01/31 at 10:58 AM by device interrogation 01/31/25, however was noted on prior device interrogations
to have brief A. tach and A-fib in past
- We discussed ANTHONY/cardioversion. Patient reports he is very hungry and unclear if he can make sound medical decisions at this time. We have left n.p.o. while he decides if he will proceed with procedure today, versus in a.m.
- [id number] score of 3 for age, hypertension. Initiated on Eliquis 5 mg twice daily. He denies issues with bleeding or falls
- He was initiated on IV Cardizem overnight, however became hypotensive with this and subsequently stopped. Blood pressures presently low but stable, no lightheadedness
- He has a new nonischemic cardiomyopathy with EF 35 to 40%, so suspect he will not tolerate atrial flutter well. Last echo 03/2024 as above
- TSH within normal limits
- Chest CT negative for PE
- trops mildly elevated but flat in 0.05 range. No CP
Data Reviewed
-
EKG: Tracing Personally Visualized and interpreted
CT Scan: Report Reviewed by me
Medical Tests (Nuc Med, Echo etc): Report Reviewed by me
Labs: Labs Reviewed by me
Old Records: Reviewed
[2025-02-01] MEDS: ELIQUIS 5 MG PO ×2 (09:49→20:16)
[2025-02-01] MEDS: PROTONIX 40 MG PO (09:50)
[2025-02-01] MEDS: COREG 6.25 MG PO (09:51)
--- NOTE | 2025-02-01 10:02 | CM ---
Addendum entered by Franca Almanza 02/01/25 15:36:
Received consult to check on co-pay for Farxiga 10 mg po daily. Telephone call to [employer] to check on co-pay. His co-pay would be $118.00 for one month or mail order $150.00 for three months.
Original Note:
Reviewed chart. Met with Mr. Moses to review discharge plans. He states prior to admission he resides with his spouse in a one story home with two steps to enter. He states prior to admission he was independent with ambulation and adls. He states
he does not have any DME in the home. He states he has a prescription plan with [employer] and uses [facility] pharmacy. Telephone call to [employer] to check on co-pay for Eliquis 5 mg po bid.His co-pay for one month would be $105.04 and for
a ninety day supply his co-pay would be $309.24 Reviewed co-pay with Mr. Moses. He states he is not concerned about the cost. Placed the one month free coupon in his red discharge folder. Medical work-up in progress. The discharge plan is to
return home with his spouse when medically stable.
--- NOTE | 2025-02-01 11:43 | PTCARENOTE ---
Pt BP low this morning BP 89/78, 75/58, HR 137. Dr Martinez and Dr Hadley aware. Pt BP rechecked prior to leaving for ANTHONY/CV 83/61.
--- NOTE | 2025-02-01 14:48 | PTCARENOTE ---
Pt returned form ANTHONY/CV, A,A+Ox3, denies pain. Pt is in SR with paced beats, PVC's. He states he is feeling better already. BP 97/70.
[2025-02-01] MEDS: FOLVITE 1 MG PO (15:14)
[2025-02-01] MEDS: OSCAL 500 + D 500 MG PO (15:14)
[2025-02-01] MEDS: LIPITOR 20 MG PO (15:14)
[2025-02-01] MEDS: THERAGRAN 1 TABLET PO (15:14)
[2025-02-01] MEDS: PACERONE PO ×2 (20:16→20:22)
--- NOTE | 2025-02-02 00:03 | ITS.CL.CARDI ---
Shower Screen Installer - Cardioversion
Cardioversion
Procedure Report:
Date of Procedure: 02/01/25
Procedure: ANTHONY/Cardioversion
Indication: Symptomatic atrial fibrillation
Performing Physician: Chika Villafana DO [facility]
Preprocedure ANTHONY performed without complications. No left atrial appendage thrombus. For full details, please see official report
Anticoagulation: new Eliquis 5 mg BID
Medtronic [place] XT DR ICD interrogated to confirm arrhythmia pre and post cardioversion
Technique: The patient was brought to the holding area. Signed informed consent was obtained. Rhythm was confirmed through Medtronic device interrogation. A time out was called and performed. The patient was anesthetized by the anesthesia service.
R2 pads were placed anteriorly and posteriorly. A transesophageal echocardiogram was done without complication; no left atrial appendage thrombus. A 200 J synchronized biphasic shock restored normal sinus/ AP rhythm. There were no complications.
Conclusion: Uncomplicated cardioversion from atrial fibrillation to sinus/AP rhythm.
Recommendation: Patient was recovered and returned to telemetry/IVU bed for further optimization. Routine post cardioversion care. Will start amiodarone load given history of cardiomyopathy. Continue terminal operations manager anticoagulation.
--- NOTE | 2025-02-02 03:13 | PTCARENOTE ---
Received pt @ change of shift. AAOx3, VSS-- NSR on monitor w/ occasional A-pacing, PVCs. Dressing changed on MOES site on right lower leg-- vasoline gauze and foam dressing. Discussed plan of care. Pt verbalizes understanding. Plan of care ongoing.
Call hedrick within reach.
[2025-02-02 04:53] VITALS: BP 112/70
[2025-02-02 05:03] VITALS: BMI 25.2
[2025-02-02 05:35] LABS: Hematocrit 38.1 % (39.0-52.0); Hemoglobin 13.1 g/dL (13.0-18.0); Mean Corp Hgb Conc. 34.4 g/dL (33.0-37.0); Mean Corpuscular Volume 85.0 fL (80.0-94.0); Nucleated Red Blood Cells % 0 % (-); Platelet Count 197 10^3/uL (130-400); Red Cell Dist. Width 13.9 % (11.5-14.5)
[2025-02-02 06:12] LABS: ALT (SGPT) 17 U/L (0-50); AST (SGOT) 24 U/L (17-59); Albumin 3.4 g/dl (3.5-5.0); Alkaline Phosphatase 104 U/L (38-126); Blood Urea Nitrogen 14 mg/dl (9-20); Calcium 9.1 mg/dl (8.4-10.2); Carbon Dioxide 25 mmol/L (22-30); Chloride 106 mmol/L (98-107); Estimated Creatinine Clearance 68 ml/min; Glucose 99 mg/dl (70-99); Potassium 4.4 mmol/L (3.5-5.1); Sodium 133 mmol/L (135-145); Total Protein 6.1 g/dl (6.3-8.2); eGFR > 60.00
[2025-02-02 08:52] VITALS: BP 126/89
[2025-02-02] MEDS: OSCAL 500 + D 500 MG PO (08:52)
[2025-02-02] MEDS: ELIQUIS 5 MG PO (08:52)
[2025-02-02] MEDS: THERAGRAN 1 TABLET PO (08:52)
[2025-02-02] MEDS: PROTONIX 40 MG PO (08:52)
[2025-02-02] MEDS: FOLVITE 1 MG PO (08:52)
[2025-02-02] MEDS: PACERONE 400 MG PO (08:52)
[2025-02-02] MEDS: LIPITOR 20 MG PO (08:52)
--- NOTE | 2025-02-02 10:27 | W.PN.CARDCBS ---
Addendum entered and electronically signed by Anam Hadley MD 02/02/25 11:26:
I saw and examined the patient.
The SCHOOL ATHLETIC DIRECTOR or PA's note was reviewed and I agree with the note.
Comment: General: Well developed, well nourished in NAD.
Neck: Supple, no JVD, HJR, carotids +2 B/L, no bruits bilaterally.
Heart: Non displaced PMI, RRR, no murmurs, No S3, S4, no rubs.
Lungs: Clear to auscultation bilaterally, no wheeze, rhonchi, rubs bilaterally,
normal expiratory phase.
Extremities: No clubbing, cyanosis or edema bilaterally.
Neuro: Grossly nonfocal, awake, alert and oriented x3.
Stable cardiology status for discharge. Change amiodarone to 200 mg twice daily for 4 weeks then 200 mg daily. He will see EP as an outpatient to discuss ablation. He is not keen on long-term amiodarone
Original Note:
Today's Communication / Plan
-
amiodarone 200mg BID x4 weeks then 200mg daily
eliquis
coreg 3.125mg BID
no losartan for now
OP EP follow up to discuss ablation
ok for DC
Impression / Plan
-
Primary Reach Lift Truck Driver: Dr. VERONICA Quintanilla
Assessment:
Presentation with tachycardia
Typical atrial flutter with RVR, new diagnosis, started 01/31 @10:58AM
Elevated troponin, suspected nonischemic myocardial injury
History of brief Atach, brief afib 57 seconds by last device interrogation 11/2024
NICM EF 35-40% by echo 03/2024
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
HTN
HLD
s/p cath with luminal irregularities only 2020
GERD/Buck's esophagus
RA
ECHO 04/03/22: EF 35 to 40%, stage I diastolic dysfunction, trace to mild MR, aortic sclerosis, trace AR, trace TR, PAP 36 mmHg
ECHO 03/31/24: EF 37%, global hypokinesis, stage I diastolic dysfunction, aortic sclerosis, mild aortic root dilatation
Plan:
- Presented from [facility] center with typical a flutter with RVR, new diagnosis, however was noted to also have brief A-fib and A. tach on prior device interrogations
- Underwent successful ANTHONY/cardioversion on 02/01/2025.
- He was initiated on Eliquis 5 mg twice daily
- Given known cardiomyopathy, was initiated on amiodarone therapy and attempt to help maintain sinus rhythm. Plan to continue Amio 200 mg twice daily for 4 weeks then decrease to 200 mg daily
- Treated, however he was hypotensive with this. Will decrease back to Coreg 3.125 mg twice daily. Will hold outpatient losartan and consider reinitiation in outpatient setting
- Troponins were mildly elevated in 0.05 range. No chest pain. Could consider for outpatient ischemic evaluation
- We discussed a flutter ablation today. He is interested in this. Will arrange outpatient EP follow-up to discuss further
- Okay for discharge to home today
- Discussed with hospitalist via [place] text
Progress Note - Reach Lift Truck Driver
Subjective
Date of Service: February 02, 2025
Denies chest pain, shortness of breath, palpitations overnight
Objective
Labs:
02/02/25 04:55
02/02/25 04:55
Labs
Hgb 13.1 g/dL (13.0-18.0) 02/02/25 04:55
Hct 38.1 % (39.0-52.0) L 02/02/25 04:55
Plt Count 197 10^3/uL (130-400) 02/02/25 04:55
Sodium 133 mmol/L (135-145) L 02/02/25 04:55
Potassium 4.4 mmol/L (3.5-5.1) 02/02/25 04:55
BUN 14 mg/dl (9-20) 02/02/25 04:55
Creatinine 1.0 mg/dL (0.7-1.3) 02/02/25 04:55
Glucose 99 mg/dl (70-99) 02/02/25 04:55
Troponins
01/31/25 01/31/25 02/01/25
18:17 22:57 03:11
Troponin I 0.050 H* 0.056 H* 0.055 H*
Vital Signs and I&O:
Vital Signs
Temp Pulse Resp BP Pulse Ox
98 F 78 18 126/89 97
02/02/25 04:52 02/02/25 08:52 02/02/25 04:52 02/02/25 08:52 02/02/25 04:52
Vital Signs
Temp Pulse Resp BP Pulse Ox
98 F 78 18 126/89 97
02/02/25 04:52 02/02/25 08:52 02/02/25 04:52 02/02/25 08:52 02/02/25 04:52
Intake & Output
01/31/25 02/01/25 02/02/25 02/03/25
07:59 07:59 07:59 07:59
Intake Total 507.5 / 507.5
Output Total 325 / 325
Balance 507.5 / 507.5 -325 / -325
Physical Exam
Physical Exam
GEN: No distress, awake, alert, oriented x3
HEENT: supple, anicteric, mmm, eomi
LUNGS: CTA B/L, no wheezes/rales
CV: Reg, S1/S2, no murmur
ABD: soft, BS+, NT/ND
EXT: No cyanosis, clubbing, edema
NEURO: Gross non-focal
SKIN: Warm, pink, dry. No rash
--- NOTE | 2025-02-02 10:38 | PTCARENOTE ---
Pt is AOx3, no complaints of pain or discomfort. SR on tele monitor, VSS. Pt worked with OT this AM. Plan for discharge later today. Call hedrick within reach.
[2025-02-02 11:03] VITALS: BP 138/98
[2025-02-02 11:14] VITALS: BP 143/106
--- NOTE | 2025-02-02 11:24 | CM ---
Reviewed chart. Met with Mr. Moses to review discharge plans. He states he is feeling well and maybe able to go home soon. Prior to admission he resides with his spouse in a one story home with two steps to enter. Prior to admission he was
independent with ambulation and adls. He does not have any DME in the home. He has a prescription plan with [facility] and uses [facility] pharmacy. Medical work-up in progress. The discharge plan is to return home with his spouse when medically
stable.
[2025-02-02 11:28] VITALS: BP 138/98; BP 143/106; PULSE 109; PULSE 79; PULSE 81; O2SAT 99
[2025-02-02 11:35] VITALS: BP 135/88
--- NOTE | 2025-02-02 13:32 | W.PN.HOSP.TC ---
Today's Communication/Plan
-
Discharge home today
Assessment / Plan
Assessment / Plan
Impression:
75yo M with PMHX of [place] HTN, SVT s/p ICD, non-ischemic CM EF 37%, barrets, eosynophilic esophagitis, chronic herpes simplex, SCC of the skin s/p Mohs came with tachycardia found in infusion center, where he went for Abatacept injection. Found atrial
flutter in ED.
By cardiology.
TTE shows:
1. Moderate reduced left ventricular systolic function with LV ejection fraction visually estimated 35-40%.
2. Normal right ventricular size and systolic function. Right-sided device wires present.
3. No left atrial appendage thrombus.
4. No significant valve pathology.
5. No pericardial effusion.
6. Okay to proceed with planned cardioversion.
7. Compared to prior study dated 03/31/2024, No significant change.
Post cardioversion
Started on Eliquis, and amiodarone.
GERD.
Will be discharged home today
Assessment/plan
#Atrial flutter status post cardiac
#Non-ischemic CM
#Non-ischemic myocardial injury 2/2 tachycardia
#Essential HTN
telemetry
rate control, however limited with hypotesion, adjust BP meds
Echo as above
defer anticoagulation to cardiology, since concern for coduction block on EKG
TSH WNL
serial trop peaked at 0.056 without meaningful delta
Patient does not have chest pain
Remains in sinus rhythm after cardioversion
Will be discharged on amiodarone/Eliquis.
Hold losartan/
#RA
#Barrets
#chronic herpes siplex infection
cont home meds
CODE STATUS: Full code
DVT prophylaxis: Eliquis
Diet: cardiac diet
Disposition: Discharge home today
Total time spent on today's encounter was 55 minutes which included time spent in counseling the patient/family regarding diagnosis and treatment plan as listed above, goals of care, and symptom management. Case was discussed with nursing staff,
specialists, and care coordinators/case management. All labs and imaging personally reviewed by me. Remainder the time spent in detailed review of previous records, lab data, imaging, and other medical provider documentation.
Anticipated Discharge: Today
Subjective/Interval History
-
Date of Service: February 02, 2025
Patient seen and examined at bedside, denies any chest pain or shortness of breath, no abdominal pain, no nausea, no vomiting, no diarrhea or constipation.
Objective Data
-
Labs:
Laboratory Results
02/02/25
04:55
WBC 6.5
Hgb 13.1
Hct 38.1 L
Plt Count 197
Sodium 133 L
Potassium 4.4
Chloride 106
Carbon Dioxide 25
BUN 14
Creatinine 1.0
Glucose 99
Calcium 9.1
Total Bilirubin 0.6
AST 24
ALT 17
Alkaline Phosphatase 104
Vital Signs:
Vital Signs
Temp Pulse Resp BP Pulse Ox
97.3 F 69 18 135/88 98
02/02/25 11:41 02/02/25 11:35 02/02/25 11:41 02/02/25 11:35 02/02/25 11:41
I&O
02/01/25 02/02/25 02/03/25
06:59 06:59 06:59
Intake Total 507.5 / 507.5
Output Total 325 / 325
Balance 507.5 / 507.5 -325 / -325
Physical Exam
-
General: Well Developed, Well Nourished, No Apparent Distress and Comfortable
HEENT: Normocephalic, Atraumatic, Moist Mucous Membranes, No Ptosis, PERRLA and Nose Appears Normal
Respiratory: Clear to Auscultation and Non Labored Respirations
Cardiac: Regular Rhythm and S1/S2
Breast: Deferred by me
GI: Soft, Nontender, Nondistended and Normal Bowel Sounds
Genito-urinary: No Costovertebral Tender
Musculoskeletal: No Clubbing, No Cyanosis and No Edema
Skin: Warm
Neuro: Awake, Alert, Oriented, AO x 3 and No Motor Deficits
Psych: Calm
Data Reviewed
-
Diagnostic Radiology: Image personally visualized and interpreted and Report Reviewed by me
CT Scan: Image personally visualized and interpreted and Report Reviewed by me
Ultrasound: Image personally visualized and interpreted and Report Reviewed by me
MRI: Image personally visualized and interpreted and Report Reviewed by me
Medical Tests (Nuc Med, Echo etc): Image personally visualized and interpreted and Report Reviewed by me
Labs: Labs Reviewed by me
Old Records: Reviewed
--- NOTE | 2025-02-02 13:35 | W.DCSUMMARY ---
Discharge Summary
Discharge Data
Date of Admission: 01/31/25
Date of Discharge: 02/02/25
Total time spent discharging patient (in min): 40
-
Pending Results: No
Hospital Course
Hospital course
75yo M with PMHX of [place] HTN, SVT s/p ICD, non-ischemic CM EF 37%, barrets, eosynophilic esophagitis, chronic herpes simplex, SCC of the skin s/p Mohs came with tachycardia found in infusion center, where he went for Abatacept injection. Found atrial
flutter in ED.
By cardiology.
TTE shows:
1. Moderate reduced left ventricular systolic function with LV ejection fraction visually estimated 35-40%.
2. Normal right ventricular size and systolic function. Right-sided device wires present.
3. No left atrial appendage thrombus.
4. No significant valve pathology.
5. No pericardial effusion.
6. Okay to proceed with planned cardioversion.
7. Compared to prior study dated 03/31/2024, No significant change.
Post cardioversion
Started on Eliquis, and amiodarone.
GERD.
Will be discharged home today
During hospitalization patient was treated from the following
Atrial flutter status post cardiac
#Non-ischemic CM
#Non-ischemic myocardial injury 2/2 tachycardia
#Essential HTN
telemetry
rate control, however limited with hypotesion, adjust BP meds
Echo as above
defer anticoagulation to cardiology, since concern for coduction block on EKG
TSH WNL
serial trop peaked at 0.056 without meaningful delta
Patient does not have chest pain
Remains in sinus rhythm after cardioversion
Will be discharged on amiodarone/Eliquis.
Hold losartan/
#RA
#Barrets
#chronic herpes siplex infection
cont home meds
CODE STATUS: Full code
DVT prophylaxis: Eliquis
Diet: cardiac diet
Disposition: Discharge home today
Total time spent on today's encounter was 40 minutes which included time spent in counseling the patient/family regarding diagnosis and treatment plan as listed above, goals of care, and symptom management. Case was discussed with nursing staff,
specialists, and care coordinators/case management. All labs and imaging personally reviewed by me. Remainder the time spent in detailed review of previous records, lab data, imaging, and other medical provider documentation.
Anticipated Discharge: Today
Discharge Plan
-
Patient Disposition: Home (Routine Discharge)
Discharge Diagnosis/Procedures: #Atrial flutter
#Non-ischemic CM
#Non-ischemic myocardial injury 2/2 tachycardia
#Essential HTN
Diet: Low Cholesterol
Activity: As tolerated
Referrals:
Derian Garcia MD [Family Provider, Family Practice]
Adolfo Leger MD [Active, Cardiology] - 03/10/25 10:00 am
Referral Note: You have a cardiology/electrophysiology follow-up appointment at the [place] office to discuss atrial flutter ablation. Please call with questions
Kris Quintanilla MD [Active, Cardiology] - 03/18/25 12:40 pm
Referral Note: Your appointment time has changed, now at 12:40 PM. Please call with questions
Additional Discharge Medication Instructions: Please continue amiodarone 200mg twice daily for 4 weeks then decrease to 200mg daily!
Prescriptions:
New
Eliquis 5 mg tablet
5 mg PO BID Qty: 60 0RF
amiodarone [Pacerone] 200 mg Tablet
200 mg PO BID 28 Days Qty: 56 0RF
Rx Instructions:
for 4 weeks then once daily
Continued
atorvastatin 20 MG tablet
20 mg PO DAILY
omeprazole 20 MG capsule,delayed release(DR/EC)
20 mg PO DAILY
folic acid 1 MG tablet
1 mg PO DAILY
calcium carb-D3-mag ox-zinc ox 333 mg-133 unit -133 mg-5 mg Tablet
1 tab PO DAILY Qty: 0
Orencia 50 mg/0.4 mL Syringe
50 mg SC MONTHLY Qty: 0
therapeutic multivitamin Tablet
1 tab PO DAILY
carvedilol 3.125 mg tablet
3.125 mg PO BID
yuzvcqqthuy-aegzgqrdn-bqp C-Mn 500-400 mg Capsule
1 cap PO DAILY
methotrexate sodium 2.5 MG tablet
10 mg PO SA
Held
losartan 25 MG tablet
25 mg PO DAILY
Hold Instructions: Hold till follow up with cardiology
Discharge Orders:
Discharge Patient (As Directed); Ordered 02/02/25
Ordered By: Sam Malone
Care Plan Goals
Care Plan Goals:
Problem: Readiness for enhanced knowledge related to diagnosis and treatment plan
Goal: Understand your diagnosis and treatment plan needs, including medications if applicable.
Instructions: Know your diagnosis, underlying causes and treatment plan options, including medications if applicable. Consult with your health care team to learn about your diagnosis and treatment plan, including medications if applicable.
Discharge Date and Time
Discharge Date/Time: 02/02/25 12:42
Print Language: TAJIK
== END 2025-02-02 12:42 | disposition home or self-care (01) | DRG 309 ==
LOC: IVU 21:17
PROVIDERS: Clinical Nurse Specialist Family Health; Internal Medicine Cardiovascular Disease; ADMITTING PHYSICIAN Hospitalist; ATTENDING PHYSICIAN General Practice; EMERGENCY PHYSICIAN Emergency Medicine; FAMILY PHYSICIAN Family Medicine; OTHER PHYSICIAN Internal Medicine Cardiovascular Disease
PROC: 5A2204Z Restoration of Cardiac Rhythm, Single (ICD-10-PCS; 2025-02-01)
PROC: B24BZZ4 Ultrasonography of Heart with Aorta, Transesophageal (ICD-10-PCS; 2025-02-01)
DX: I48.3 Typical atrial flutter (principal); I50.22 Chronic systolic (congestive) heart failure; I5A Non-ischemic myocardial injury (non-traumatic); M06.9 Rheumatoid arthritis, unspecified; Z79.01 Long term (current) use of anticoagulants; I11.0 Hypertensive heart disease with heart failure; K21.9 Gastro-esophageal reflux disease without esophagitis; I42.8 Other cardiomyopathies; B00.9 Herpesviral infection, unspecified; Z79.899 Other long term (current) drug therapy; Z86.79 Personal history of other diseases of the circulatory system; Z95.810 Presence of automatic (implantable) cardiac defibrillator
CPT/HCPCS: 71275; 80053; 83735; 84443; 84484; 85025; 85027; 85379; 92960; 93005; 93312; 93320; 93325; 96361; 96374; 96375; 96376; 97116; 97161; 99291; Q9967